=== PATIENT | female | born 1995 | race Caucasian/White ===

== ENCOUNTER 2020-07-11 09:08 | Emergency (ER) | payer OTHER ==
[~2020-07-11] VITALS: Ht 170.2 cm; Wt 108.9 kg
[2020-07-11 09:15] VITALS: BP 152/90
--- NOTE | 2020-07-11 09:29 | PHYS DOC ---
General Adult EDM: Chief Complaint: ANIMAL BITE HPI: HPI: Patient is a 25-year-old female coming in for dog bite to her right forearm. Patient states she went across the street to see if the dog had a tachycardia collar when she approached the dog bit her arm and shook it soon before letting go. Patient states the dog did not have a collar she has not seen the dog before. Called 911 who told her to come to the emergency department and also admit them there did not follow police report. Her last tetanus was within the last year. States she otherwise has been well. Denies any paresthesias or numbness to her arm. States she otherwise has been well. Review of Systems: Review of Systems: All other systems within normal limits except for as noted in the HPI Current Medications: Current Meds: Current Medications Medications (Trade) Dose Ordered Sig/Ramin Start Time Stop Time Status Last Admin Dose Admin Acetaminophen/ Hydrocodone Bitart (Lortab 5/325) 1 tab 1X ONCE 07/11/20 09:30 07/11/20 09:31 UNV Amoxicillin/ Clavulanate Potassium (Augmentin 875/ 125mg) 1 tab 1X ONCE 07/11/20 09:30 07/11/20 09:31 UNV Physical Exam: PE: Constitutional: Well developed, well nourished, no acute distress, non-toxic appearance. [] HENT: Normocephalic, atraumatic, bilateral external ears normal, nose normal. [] Eyes: PERRLA, conjunctiva normal, no discharge. [] Neck: No rigidity, supple, no stridor. [] Cardiovascular: Regular rate and rhythm, brisk cap refill [] Lungs & Thorax: Non labored symmetric respirations, no tachypnea or respiratory distress [] Abdomen: Soft, nondistended. Skin: Ecchymosis to right forearm, no open wounds, single puncture wound on left wrist. [] Back: Unremarkable Extremities: No deformities, range of motion grossly intact, no lower extremity edema. Right arm swelling and tenderness of proximal forearm, no pain with movement of elbow or wrist. No pain with passive stretch. [] Neurologic: Alert and oriented X 3, no focal deficits noted. [] Psychologic: Affect normal, judgement normal, mood normal. [] EKG: EKG: [] Radiology/Procedures: Radiology/Procedures: Exam performed: 2 views right forearm. HISTORY: Dog bite. DATE OF SERVICE: 07/11/2020. COMPARISON: None available. FINDINGS: AP, lateral and oblique views of the right forearm are obtained. The wrist and elbow reveal the osseous structures to be intact and well aligned. There is mild soft tissue swelling, no definite foreign body is detected. IMPRESSION: Mild soft tissue swelling in the upper forearm consistent with a history of dogbite. No bony abnormality detected. [] Heart Score: Risk Factors: Risk Factors: DM, Current or recent (<one month) smoker, HTN, HLP, family history of CAD, obesity. Risk Scores: Score 0 - 3: 2.5% MACE over next 6 weeks - Discharge Home Score 4 - 6: 20.3% MACE over next 6 weeks - Admit for Clinical Observation Score 7 - 10: 72.7% MACE over next 6 weeks - Early Invasive Strategies Course & Med Decision Making: Course & Med Decision Making Patient is already on Augmentin for a salivary gland infection. Has 1 day left. Discussed that she will need to continue on for 5 days for prophylaxis for infection. Discussed risks and benefits of rabies vaccine. Patient would like to have the rabies vaccine and understands follow-up with primary care for r epeated immunizations. Given rabies vaccine and immunoglobulin due to not having previous rabies vaccination. PD notified and met with patient in the emergency department to open case. They state they have looked and have not been able to locate the animal. [] Mavis Disclaimer: Mavis Disclaimer: This electronic medical record was generated, in whole or in part, using a voice recognition dictation system. Departure Departure: Impression: Primary Impression: Dog bite Disposition: HOME SELF CARE/HOMELESS Condition: STABLE Patient Instructions: Animal Bite Additional Instructions: [facility] department Address: [address] [place] [address] [address], [place] [address] You received your first rabies vaccine today, will need repeat doses on 07/14, 07/17, and 07/24. Scripts Amoxicillin/Potassium Clav (AUGMENTIN 875-125 TABLET) 1 Each Tablet 1 TAB PO BID for antibiotic for 4 Days, #8 TAB 0 Refills Prov: KAE LOPEZ MD 07/11/20 KAE LOPEZ MD Jul 11, 2020 09:29
[2020-07-11] MEDS ORDERED: HYDROcodone/APAP 5/325MG 1 TAB TABLET PO ONE (09:30)
[2020-07-11] MEDS ORDERED: AMOXICILLIN/K CLAV 875/125MG TABLET. PO ONE (09:30)
--- NOTE | 2020-07-11 10:03 | RAD ---
Exam performed: 2 views right forearm. HISTORY: Dog bite. DATE OF SERVICE: 07/11/2020. COMPARISON: None available. FINDINGS: AP, lateral and oblique views of the right forearm are obtained. The wrist and elbow reveal the osseo us structures to be intact and well aligned. There is mild soft tissue swelling, no definite foreign body is detected. IMPRESSION: Mild soft tissue swelling in the upper forearm consistent with a history of dogbite. No bony abnormality detected. Electronically signed by: Laila De La Torre MD (07/11/2020 10:00 AM) [id number]
[2020-07-11] MEDS ORDERED: AMOX1TAB61 PO (10:14)
[2020-07-11] MEDS ORDERED: RABIES VIRUS VACC PF 2.5 UNIT / 1 ML VIAL. VAX IM ONE (10:15)
[2020-07-11] MEDS ORDERED: RABIES IMMUNE GLOBULIN/PF 300 UNIT/ML 5ML VIAL. VAX IM ONE (10:45)
== END 2020-07-11 11:30 | disposition home or self-care (01) ==
LOC: ER 09:08
DX: S51.851A Open bite of right forearm, initial encounter (principal); R00.0 Tachycardia, unspecified; R60.0 Localized edema; W54.0XXA Bitten by dog, initial encounter; Y93.89 Activity, other specified; Y92.89 Other specified places as the place of occurrence of the external cause; Y99.8 Other external cause status
CPT/HCPCS: 73090; 90471; 90675; 96372; 99284